=== PATIENT | male | born 1970 | race Caucasian/White ===

== ENCOUNTER 2018-04-23 20:39 | Emergency (ER) | payer BC ==
[~2018-04-23] VITALS: Ht 170.2 cm; Wt 80.3 kg
[2018-04-23 20:42] VITALS: BP 120/78
[2018-04-23] MEDS ORDERED: IBUPROFEN 600 MG TABLET PO ONE ×2 (22:30→22:55)
[2018-04-23] MEDS ORDERED: HYDROCODONE/APAP 5/325MG 1 EACH TABLET PO ONE (22:30)
[2018-04-23] MEDS ORDERED: HYDROCODONE/APAP 5/325MG 1 EACH TABLET ONE (22:55)
== END 2018-04-23 23:02 | disposition home or self-care (01) ==
LOC: ER 20:42
DX: R07.89 Other chest pain (principal); I10 Essential (primary) hypertension; Z60.2 Problems related to living alone; V43.62XA Car passenger injured in collision with other type car in traffic accident, initial encounter; Y93.89 Activity, other specified; Y92.410 Unspecified street and highway as the place of occurrence of the external cause; Y99.8 Other external cause status
CPT/HCPCS: 71045-TC; A4606; Z7610